=== PATIENT | female | born 1990 | race Caucasian/White ===

== ENCOUNTER 2016-05-04 15:42 | Emergency (ER) ==
[2016-05-04 15:55] VITALS: BP 116/76; TEMP 97.6; BMI 25.2
[2016-05-04 17:08] LABS: BASOPHILS % (AUTO) 0.3 % (0.0-3.0); EOSINOPHILS # (AUTO) 0.3 K/ul (0.0-0.7); HEMATOCRIT 39.2 % (37.0-47.0); HEMOGLOBIN 12.7 g/dl (12.0-16.0); IMMATURE GRANULOCYTE % (AUTO) 0.4 % (0.0-5.0); LYMPHOCYTES # (AUTO) 3.8 K/uL (0.60-3.4); LYMPHOCYTES % (AUTO) 37.8 (10.0-50.0); MEAN CORPUSCULAR HEMOGLOBIN 30.6 pg (27.0-31.0); MEAN CORPUSCULAR HGB CONC 32.4 (31.8-35.4); MEAN CORPUSCULAR VOLUME 94.5 fl (81.0-99.0); MONOCYTES # (AUTO) 0.6 K/uL (0.4-2.0); MONOCYTES % (AUTO) 5.7 (0-10); NEUTROPHILS # (AUTO) 5.3 K/ul (2.0-6.9); NEUTROPHILS % (AUTO) 52.8; PLATELET COUNT 262 10^3/uL (140-440); RED BLOOD COUNT 4.15 10^6/ul (4.20-5.40); WHITE BLOOD COUNT 9.99 K/ul (4.6-10.2)
[2016-05-04 17:18] LABS: SERUM PREGNANCY INTERNAL QC INTERNAL QC VALID
[2016-05-04 17:21] LABS: PARTIAL THROMBOPLASTIN TIME 27.4 SEC (23.9-40.0); PROTHROMBIN TIME 10.7 SEC (9.3-11.0)
[2016-05-04 17:26] LABS: ALBUMIN 3.6 g/dL (3.4-5.0); ALBUMIN/GLOBULIN RATIO 1.38; BILIRUBIN,TOTAL 0.34 mg/dL (0.00-1.20); BUN/CREATININE RATIO 9.58; CALCIUM 8.9 mg/dL (8.2-10.2); CREATININE 0.73 mg/dL (0.60-1.30); TOTAL PROTEIN 6.2 g/dL (6.4-8.2)
--- NOTE | 2016-05-04 18:03 | ED.PDOC ---
General ED Provider: Dr. YASMANY HERNANDEZ Chief Complaint: Urinary Problem Stated Complaint: dysuria Time Seen by Physician: 16:00 (vaginal spotting) Mode of Arrival: Walk-In Information Source: Patient Exam Limitations: No limitations [facility] and Triage Documentation Reviewed and Agree: Yes Review of Systems - Review Of Systems Constitutional: Reports: No symptoms Eyes: Reports: No symptoms Ears, Nose, Mouth, Throat: Reports: No symptoms Respiratory: Reports: No symptoms Cardiac: Reports: No symptoms GI: Reports: No symptoms : Reports: Other (vaginal spotting) Musculoskeletal: Reports: No symptoms Skin: Reports: No symptoms Neurological: Reports: No symptoms Endocrine: Reports: No symptoms Hematologic/Lymphatic: Reports: No symptoms All Other Systems: Reviewed and Negative Past Medical History - Past Medical History Previously Healthy: Yes Endocrine: Reports: None Cardiovascular: Reports: None Respiratory: Reports: None Hematological: Reports: None Gastrointestinal: Reports: None Genitourinary: Reports: None Neuro/Psych: Reports: None Musculoskeletal: Reports: None Cancer: Reports: None Last Menstrual Period: 04/29/16 - Surgical History General Surgical History: Reports: None - Family History Family History: Reports: None - Social History Smoking Status: Current every day smoker Hx Substance Use: No Alcohol Screening: Occasionally - Immunizations Tetanus Shot up to Date: Yes Physical Exam - Physical Exam Appearance: Well-appearing, No pain distress, Well-nourished Eyes: JAKOB, EOMI, Conjunctiva clear ENT: Ears normal, Nose normal, Oropharynx normal Respiratory: Airway patent, Breath sounds clear, Breath sounds equal, Respirations nonlabored Cardiovascular: RRR, Pulses normal, No rub, No murmur GI/: Soft, Nontender, No masses, Bowel sounds normal, No Organomegaly Musculoskeletal: Normal strength, ROM intact, No edema, No calf tenderness Skin: Warm, Dry, Normal color Neurological: Sensation intact, Motor intact, Reflexes intact, Cranial nerves intact, Alert, Oriented Psychiatric: Affect appropriate, Mood appropriate Critical Care Note - Critical Care Note Total Time (mins): 0 Course - Course Hematology/Chemistry: 05/04/16 17:00 05/04/16 17:00 Orders, Labs, Meds: Lab Review 05/04/16 17:00 WBC 9.99 RBC 4.15 L Hgb 12.7 Hct 39.2 MCV 94.5 MCH 30.6 MCHC 32.4 RDW Coeff of Babar 13.0 Plt Count 262 Immature Gran % (Auto) 0.4 Neut % (Auto) 52.8 Lymph % (Auto) 37.8 [place] % (Auto) 5.7 Eos % (Auto) 3.0 Baso % (Auto) 0.3 Immature Gran # (Auto) 0.0 Neut # 5.3 Lymph # 3.8 H [place] # 0.6 Eos # 0.3 Baso # 0.0 PT 10.7 INR 1.04 APTT 27.4 Sodium 138 Potassium 4.0 Chloride 106 Carbon Dioxide 27 Anion Gap 9.0 BUN 7 Creatinine 0.73 Estimated GFR (MDRD) 97.00 BUN/Creatinine Ratio 9.58 Glucose 93 Calcium 8.9 Total Bilirubin 0.34 AST 10 L ALT 9 L Alkaline Phosphatase 63 Total Protein 6.2 L Albumin 3.6 Globulin 2.6 Albumin/Globulin Ratio 1.38 Amylase 35 Lipase 14 Serum , Qual Negative Orders Category Date Time Status AMYLASE Stat LAB 05/04/16 17:00 Completed CBC W/ AUTO DIFF Stat LAB 05/04/16 17:00 Completed COMPREHENSIVE METABOLIC PANEL Stat LAB 05/04/16 17:00 Completed LIPASE Stat LAB 05/04/16 17:00 Completed PT WITH INR Stat LAB 05/04/16 17:00 Completed PTT [PARTIAL THROMBOPLASTIN TIME] Stat LAB 05/04/16 17:00 Completed SERUM Stat LAB 05/04/16 17:00 Completed URINALYSIS C & S IF INDICATED Stat LAB 05/04/16 16:[address] ABDOMEN/PELVIS WO CONTRAST Stat RADS 05/04/16 16:50 Ordered Vital Signs: Temp Pulse Resp BP Pulse Ox 05/04/16 15:44 97.6 F 72 16 116/76 98 Departure - Departure Time of Disposition: 19:00 Disposition: HOME SELF-CARE Discharge Problem: Vaginal spotting Instructions: Dysfunctional Uterine Bleeding (ED) Condition: Good Pt referred to PMD for follow-up: Yes Allergies/Adverse Reactions: Allergies pamabrom [From Midol] Adverse Reaction (Verified 11/23/15 15:40) pyrilamine maleate [From Midol] Adverse Reaction (Verified 05/04/16 15:56) Home Medications: Ambulatory Orders Sumatriptan Succinate [Imitrex] 50 mg PO ONCE PRN 02/25/14
--- NOTE | 2016-05-04 18:54 | CT ---
EXAM: CT abdomen pelvis without intravenous contrast 05/04/2016. Sagittal and coronal reformatted images obtained HISTORY: Abdominal pain COMPARISON: None FINDINGS: The liver, gallbladder, adrenal glands and kidneys show no acute abnormality. [address] nonobstructive right-sided nephrolithiasis. No hydronephrosis or obstructing ureteral stone. The spleen and pancreas show no acute abnormality. There is no bowel obstruction. Partially visualized appendix within normal limits. Unremarkable ur inary bladder. No free air free fluid. No acute osseous abnormality. IMPRESSION: 1. No urinary or bowel obstruction. No evidence of appendicitis. 2. Nonobstructive right-sided nephrolithiasis. 3. No acute inflammatory process identified within the abdomen or pelvis. 4. Technically limited examination due to lack of intravenous contrast.
== END 2016-05-04 19:00 | disposition home or self-care (01) ==
LOC: ED 15:42
DX: N93.8 Other specified abnormal uterine and vaginal bleeding (principal); R30.0 Dysuria; F17.210 Nicotine dependence, cigarettes, uncomplicated
CPT/HCPCS: 36415; 80053; 82150; 83690; 84703; 85025; 85610; 85730; 99283

== ENCOUNTER 2017-06-21 19:07 | Emergency (ER) ==
[2017-06-21 19:13] VITALS: BP 114/72; TEMP 98.2; BMI 23.7
[2017-06-21] MEDS ORDERED: LACTATED RINGERS 1,000 ML IV STA (19:19)
--- NOTE | 2017-06-21 19:25 | ED.PDOC ---
General ED Provider: Dr. FANNIE HARDEN-ER Chief Complaint: Vaginal Bleeding Stated Complaint: im 8 weeks and im bleeding Time Seen by Physician: 19:10 Mode of Arrival: Walk-In Information Source: Patient Exam Limitations: No limitations Primary Care Provider: LUANN COURTNEY-[facility] Nursing and Triage Documentation Reviewed and Agree: Yes Reviewed sepsis parameters & appropriate labs ordered?: Yes System Inflammatory Response Syndrome: Not Applicable Sepsis Protocol: For patient's 13 years and over: Temp is 96.8 and below OR 101 and greater Pulse >90 BPM Resp >20/minute Acutely Altered Mental Status Are patient's symptoms suggestive of a new infection, such as: -Pneumonia -Skin, Soft Tissue -Endocarditis -UTI -Bone, Joint Infection -Implantable Device -Acute Abdominal Infection -Wound Infection -Meningitis -Blood Stream Catheter Infection -Unknown 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 Exam - Vaginal Bleeding Complaint/Exam Onset/Duration: today Symptoms Are: Resolved Initial Severity: Mild Current Severity: Moderate Character: Reports: Bright red Aggravating: Reports: None Alleviating: Reports: None Associated Signs and Symptoms: Denies: Dizziness, Lightheadedness, Pale, UTI symptoms, Abdominal pain, Cramping, Generalized pain : 3 Para: 2 Patient Rh Status: Unknown Abdominal Findings: Present: None Differential Diagnoses: Threatened AB, Incomplete AB - Labor/Delivery Complaint/Exam Expected Date of Delivery: 01/29/18 Review of Systems - Review Of Systems Constitutional: Reports: No symptoms Eyes: Reports: No symptoms Ears, Nose, Mouth, Throat: Reports: No symptoms Respiratory: Reports: No symptoms Cardiac: Reports: No symptoms GI: Reports: No symptoms : Reports: No symptoms, Hematuria Musculoskeletal: Reports: No symptoms Skin: Reports: No symptoms Neurological: Reports: No symptoms Endocrine: Reports: No symptoms Hematologic/Lymphatic: Reports: No symptoms All Other Systems: Reviewed and Negative Past Medical History - Past Medical History Previously Healthy: Yes Endocrine: Reports: None Cardiovascular: Reports: None Respiratory: Reports: None Hematological: Reports: None Gastrointestinal: Reports: None Genitourinary: Reports: None Neuro/Psych: Reports: None Musculoskeletal: Reports: None Cancer: Reports: None Last Menstrual Period: 04/25 - Surgical History General Surgical History: Reports: None - Family History Family History: Reports: None - Social History Smoking Status: Current some day smoker Hx Substance Use: No Alcohol Screening: None - Immunizations Tetanus Shot up to Date: Yes Physical Exam - Physical Exam Appearance: Well-appearing, No pain distress, Well-nourished Eyes: JAKOB, EOMI, Conjunctiva clear ENT: Ears normal, Nose normal, Oropharynx normal Neck: Supple Respiratory: Airway patent Cardiovascular: RRR, Pulses normal, No rub, No murmur GI/: Soft, Nontender, No masses, Bowel sounds normal, No Organomegaly Musculoskeletal: Normal strength, ROM intact, No edema, No calf tenderness Skin: Warm, Dry, Normal color Neurological: Sensation intact, Motor intact, Reflexes intact, Cranial nerves intact, Alert, Oriented Psychiatric: Affect appropriate, Mood appropriate Critical Care Note - Critical Care Note Total Time (mins): 0 Course - Course Orders, Labs, Meds: Orders Category Date Time Status IV [ED IV/MEDIPORT/POWERPORT] .ONCE EMERGENCY 06/21/17 19:18 Active 0.9 % Sodium Chloride [Saline Flush] MEDS 06/21/17 19:18 Discontinued 1 syr IVF PRN PRN Ringers Lactated Solution [Lactated Ringers] 1,000 ml MEDS 06/21/17 19:19 Discontinued IV 100 mls/hr Medications Discontinued Medications Generic Name Dose Route Start Last Admin Trade Name Freq PRN Reason Stop Dose Admin Lactated Ringer's 1,000 mls @ 100 mls/hr 06/21/17 19:19 Lactated Ringers IV 06/22/17 05:18 .Q10H STA Sodium Chloride 1 syr 06/21/17 19:18 Saline Flush IVF PRN PRN To flush IV we anticipated transferreing her to a facility with u/s but she declines--she understands risk heavy bleeding and even but the declines and wishes to leave against medical advice Vital Signs: Temp Pulse Resp BP Pulse Ox 06/21/17 19:08 98.2 F 78 18 114/72 98 Departure - Departure Time of Disposition: 19:25 Disposition: AMA Discharge Problem: Bleeding from vagina Instructions: Threatened Miscarriage (ED) Condition: Good Pt referred to PMD for follow-up: No IPMP verified?: No Additional Instructions: seek care lita Allergies/Adverse Reactions: Allergies pamabrom [From Midol] Adverse Reaction (Verified 06/21/17 19:17) pyrilamine maleate [From Midol] Adverse Reaction (Verified 06/21/17 19:17) Home Medications: Ambulatory Orders Sumatriptan Succinate [Imitrex] 50 mg PO ONCE PRN 02/25/14 Disposition Discussed With: Patient
== END 2017-06-21 19:36 | disposition left against medical advice (07) ==
LOC: ED 19:07
DX: O20.0 Threatened abortion (principal); Z3A.08 8 weeks gestation of pregnancy; F17.210 Nicotine dependence, cigarettes, uncomplicated
CPT/HCPCS: 99281

== ENCOUNTER 2018-07-01 14:08 | Emergency (ER) ==
[2018-07-01 14:16] VITALS: BP 104/75; TEMP 98.2; BMI 22.1
--- NOTE | 2018-07-01 15:27 | ED.PDOC ---
General ED Provider: Dr. FRANK VARGAS Chief Complaint: Tooth Problem Stated Complaint: few days of pain in gum Time Seen by Physician: 14:15 Mode of Arrival: Walk-In Information Source: Patient Exam Limitations: No limitations [facility] and T[facility] Documentation Reviewed and Agree: Yes Does patient meet sepsis criteria?: No System Inflammatory Response Syndrome: Not Applicable Sepsis Protocol: For patient's 13 years and over: Temp is 96.8 and below OR 101 and greater Pulse >90 BPM Resp >20/minute Acutely Altered Mental Status Are patient's symptoms suggestive of a new infection, such as: -Pneumonia -Skin, Soft Tissue -Endocarditis -UTI -Bone, Joint Infection -Implantable Device -Acute Abdominal Infection -Wound Infection -Meningitis -Blood Stream Catheter Infection -Unknown EENT Complaint Exam - Dental/Oral Complaint/Exam Mechanism of Injury: Unknown Onset/Duration: 1 week Symptoms Are: Still present Timing: Constant Initial Severity: Moderate Current Severity: Moderate Character: Reports: Sharp, Aching Aggravating: Reports: Chewing, Exertion Alleviating: Reports: None Associated Signs and Symptoms: Reports: Swelling Related History: Reports: Similar episode Cardiac Risk Factors: Reports: None Dental/Oral Surgical History: Reports: None Tooth Findings: Present: Percussion tenderness Cervical Lymphadenopathy Present: No Facial Swelling Present: No Bleeding Present: No Septal Hematoma: No Foreign Body Present: No Dysphagia Present: No Drooling Present: No Asymmetrical Tonsillar Swelling Present: No Uvula Midline: Yes Jillian-tonsillar Fluctuence: No Trismus Present: No Scarlatinaform Rash Present: No Differential Diagnoses: Dental Abcess, Dental Caries Review of Systems - Review Of Systems Constitutional: Reports: No symptoms Eyes: Reports: No symptoms Ears, Nose, Mouth, Throat: Reports: No symptoms Respiratory: Reports: No symptoms Cardiac: Reports: No symptoms GI: Reports: No symptoms : Reports: No symptoms Musculoskeletal: Reports: No symptoms Skin: Reports: No symptoms Neurological: Reports: No symptoms Endocrine: Reports: No symptoms Hematologic/Lymphatic: Reports: No symptoms All Other Systems: Reviewed and Negative Past Medical History - Past Medical History Previously Healthy: Yes Endocrine: Reports: None Cardiovascular: Reports: None Respiratory: Reports: None Hematological: Reports: None Gastrointestinal: Reports: None Genitourinary: Reports: None Neuro/Psych: Reports: None Musculoskeletal: Reports: None Cancer: Reports: None Last Menstrual Period: 3/2 - Surgical History General Surgical History: Reports: None - Family History Family History: Reports: None - Social History Smoking Status: Former smoker Hx Substance Use: Yes (pot) Alcohol Screening: None - Immunizations Tetanus Shot up to Date: No Physical Exam - Physical Exam Appearance: Well-appearing, Thin Ill-appearing: None Pain Distress: Moderate Eyes: JAKOB ENT: Ears normal Neck: Supple Respiratory: Airway patent Cardiovascular: RRR GI/: Soft Musculoskeletal: Normal strength Skin: Warm Neurological: Sensation intact Critical Care Note - Critical Care Note Total Time (mins): 0 Course - Course Vital Signs: Temp Pulse Resp BP Pulse Ox 07/01/18 14:10 98.2 F 119 H 16 104/75 97 Departure - Departure Time of Disposition: 15:42 Disposition: HOME SELF-CARE Discharge Problem: Abscess, dental Instructions: Dental Abscess (ED) Condition: Good Pt referred to PMD for follow-up: No IPMP verified?: No Allergies/Adverse Reactions: Allergies pamabrom [From Midol] Adverse Reaction (Verified 07/01/18 14:17) pyrilamine maleate [From Midol] Adverse Reaction (Verified 07/01/18 14:17) Home Medications: Ambulatory Orders Amoxicillin 500 mg PO TID 07/01/18 Chlorhexidine [Chlorhexidine Flavor] 5 ml PO BID 07/01/18 Disposition Discussed With: Patient
[2018-07-01] MEDS ORDERED: TORADOL IM STA (15:43)
== END 2018-07-01 16:08 | disposition home or self-care (01) ==
LOC: ED 14:08
DX: K08.89 Other specified disorders of teeth and supporting structures (principal); K04.7 Periapical abscess without sinus
CPT/HCPCS: 96372; 99282